=== PATIENT | female | born 1985 | race African-American/Black ===

== ENCOUNTER 2019-07-26 08:48 | Emergency (ER) | payer MEDICAID ==
[~2019-07-26] VITALS: Ht 144.8 cm; Wt 53.1 kg
[2019-07-26] MEDS ORDERED: BIKTARVY 50-201 EACH PO (08:56)
[2019-07-26] MEDS ORDERED: Metoclopramide 10mg/2ml Inj IVP ONE (09:00)
[2019-07-26] MEDS ORDERED: DiphenhydrAMINE 50mg/ml Inj IVP ONE (09:00)
[2019-07-26 09:02] VITALS: BP 148/89
--- NOTE | 2019-07-26 09:21 | NUR ---
ED Nurse Note: pt came in via ra 68 from home c/o n/v/d since last night pt HIVm + . LEOBARDO brown done blood and urine sent to lab pt on monitor IVF up infusing will monitor.
--- NOTE | 2019-07-26 09:35 | Emergency Room Report ---
History of Present Illness General Chief Complaint: Vomiting Source: Patient, EMS Present Illness HPI Patient presents with complaints of epigastric discomfort and vomiting and diarrhea reports that she has had similar problems in the past Patient has history of HIV and Was on previous medication which she had a reaction to with a rash She stopped that medication and again recently started the medicine yesterday and feels that again is having another reaction Denies any fevers or chills denies any headache denies any posterior neck pain Denies any specific lower abdominal pain denies any vaginal discharge Allergies: Coded Allergies: IODINE (Verified Allergy, Unknown, 07/26/19) LATEX (Verified Allergy, Unknown, 07/26/19) Patient History Past Medical History: see triage record Last Menstrual Period: 06/2019 Reviewed Nursing Documentation: PMH: Agreed; PSxH: Agreed Review of Systems All Other Systems: negative except mentioned in HPI Physical Exam Vital Signs Date Time Temp Pulse Resp B/P (MAP) Pulse Ox O2 Delivery O2 Flow Rate FiO2 07/26/19 08:52 97.9 110 16 148/89 (108) 98 Room Air Sp02 EP Interpretation: reviewed, normal General Appearance: mild distress - Appears nauseated and uncomfortable Head: normocephalic, atraumatic Eyes: bilateral eye PERRL, bilateral eye EOMI ENT: hearing grossly normal, EOM grossly intact, normal pharynx Neck: supple Respiratory: lungs clear, no respiratory distress, no retraction Cardiovascular #1: regular rate, rhythm Gastrointestinal: non tender, soft, no mass Musculoskeletal: normal inspection Neurologic: alert, oriented x3 Psychiatric: normal inspection Skin: no rash Lymphatic: no adenopathy Medical Decision Making Diagnostic Impression: Primary Impression: Vomiting Additional Impressions: Leukocytosis Drug reaction ER Course With the patient's history and examination, multiple differentials considered, including but not limited to , ectopic , ovarian torsion, gastritis, cholecystitis, pancreatitis, appendicitis Consideration for reaction to medications also made Patient did also receive Benadryl Initial white blood cell count is significantly elevated Given this finding patient had further hydration and CT imaging initiated On repeat evaluation feels significantly improved CT imaging does not reveal any acute process repeat CBC has decreased Patient remains awake and appropriate Abdominal pain has subsided Given the prolonged observation repeat evaluation patient felt comfortable with close outpatient follow-up and return with any worsening symptoms Labs Test 07/26/19 08:58 07/26/19 09:14 07/26/19 13:30 Urine Color Pale yellow Urine Appearance Clear Urine pH 5 (4.5-8.0) Urine Specific [place] 1.025 (1.005-1.035) Urine Protein 1+ (NEGATIVE) Urine Glucose (UA) Negative (NEGATIVE) Urine Ketones 1+ (NEGATIVE) Urine Blood Negative (NEGATIVE) Urine Nitrite Negative (NEGATIVE) Urine Bilirubin Negative (NEGATIVE) Urine Urobilinogen Normal MG/DL (0.0-1.0) Urine Leukocyte Esterase Negative (NEGATIVE) Urine RBC 0 /HPF (0 - 2) Urine WBC 0-2 /HPF (0 - 2) Urine Squamous Epithelial Cells Few /LPF (NONE/OCC) Urine Bacteria Moderate /HPF (NONE) Urine HCG, Qualitative Negative (NEGATIVE) Urine Opiates Screen Negative (NEGATIVE) Urine Barbiturates Screen Negative (NEGATIVE) Phencyclidine (PCP) Screen Negative (NEGATIVE) Urine Amphetamines Screen Negative (NEGATIVE) Urine Benzodiazepines Screen Positive (NEGATIVE) Urine Cocaine Screen Negative (NEGATIVE) Urine Marijuana (THC) Screen Positive (NEGATIVE) White Blood Count 21.5 K/UL (4.8-10.8) 18.5 K/UL (4.8-10.8) Red Blood Count 4.31 M/UL (4.20-5.40) 3.74 M/UL (4.20-5.40) Hemoglobin 15.2 G/DL (12.0-16.0) 13.0 G/DL (12.0-16.0) Hematocrit 44.3 % (37.0-47.0) 38.5 % (37.0-47.0) Mean Corpuscular Volume 103 FL (80-99) 103 FL (80-99) Mean Corpuscular Hemoglobin 35.2 PG (27.0-31.0) 34.8 PG (27.0-31.0) Mean Corpuscular Hemoglobin Concent 34.2 G/DL (32.0-36.0) 33.8 G/DL (32.0-36.0) Red Cell Distribution Width 11.8 % (11.6-14.8) 11.7 % (11.6-14.8) Platelet Count 435 K/UL (150-450) 346 K/UL (150-450) Mean Platelet Volume 6.3 FL (6.5-10.1) 6.6 FL (6.5-10.1) Neutrophils (%) (Auto) % (45.0-75.0) % (45.0-75.0) Lymphocytes (%) (Auto) % (20.0-45.0) % (20.0-45.0) Monocytes (%) (Auto) % (1.0-10.0) % (1.0-10.0) Eosinophils (%) (Auto) % (0.0-3.0) % (0.0-3.0) Basophils (%) (Auto) % (0.0-2.0) % (0.0-2.0) Differential Total Cells Counted 100 100 Neutrophils % (Manual) 91 % (45-75) 91 % (45-75) Lymphocytes % (Manual) 5 % (20-45) 6 % (20-45) Monocytes % (Manual) 4 % (1-10) 3 % (1-10) Eosinophils % (Manual) 0 % (0-3) 0 % (0-3) Basophils % (Manual) 0 % (0-2) 0 % (0-2) Band Neutrophils 0 % (0-8) 0 % (0-8) Platelet Estimate Adequate Adequate Platelet Morphology Normal Normal Macrocytosis 1+ 1+ Sodium Level 139 MMOL/L (136-145) Potassium Level 3.8 MMOL/L (3.5-5.1) Chloride Level 101 MMOL/L (98-107) Carbon Dioxide Level 21 MMOL/L (21-32) Anion Gap 17 mmol/L (5-15) Blood Urea Nitrogen 19 mg/dL (7-18) Creatinine 1.1 MG/DL (0.55-1.30) Estimat Glomerular Filtration Rate > 60 mL/min (>60) Glucose Level 94 MG/DL (74-106) Calcium Level 10.0 MG/DL (8.5-10.1) Total Bilirubin 0.5 MG/DL (0.2-1.0) Aspartate Amino Transf (AST/SGOT) 30 U/L (15-37) Alanine Aminotransferase (ALT/SGPT) 45 U/L (12-78) Alkaline Phosphatase 94 U/L (46-116) Total Protein 9.1 G/DL (6.4-8.2) Albumin 4.9 G/DL (3.4-5.0) Globulin 4.2 g/dL Albumin/Globulin Ratio 1.2 (1.0-2.7) Lipase 134 U/L (73-393) Rhythm Strip Diag. Results EP Interpretation: yes Rate: 88 Rhythm: NSR, no PVC's, no ectopy CT/MRI/US Diagnostic Results CT/MRI/US Diagnostic Results : Impression CT abdomen pelvisImpression: Limited assessment of the GI tract, due to lack of enteric contrast administration No definite acute abnormality. Fatty liver Last Vital Signs Date Time Temp Pulse Resp B/P (MAP) Pulse Ox O2 Delivery O2 Flow Rate FiO2 07/26/19 09:02 97.9 16 148/89 98 Room Air 07/26/19 08:52 110 Status: improved Disposition: HOME, SELF-CARE Condition: Improved Scripts Hydrocortisone 1% Oint (Hydrocortisone 1% Oint*) Y Oint 28 GM TP DAILY for 7 Days, #6 GM Prov: German Olmedo DO 07/26/19 Hydrocortisone 1% Oint (Hydrocortisone 1% Oint*) Y Oint 28 GM TP DAILY for 7 Days, GM Prov: German Olmedo DO 07/26/19 Prednisone* (PREDNISONE*) 20 Mg Tablet 20 MG ORAL BID, #6 TAB Prov: German Olmedo DO 07/26/19 Diphenhydramine Hcl* (BENADRYL*) 25 Mg Capsule 25 MG ORAL Q6H PRN for Itching, #20 CAP Prov: German Olmedo DO 07/26/19 Ondansetron* (ZOFRAN*) 4 Mg Tablet 4 MG ORAL Q6H PRN for Nausea & Vomiting, #12 TAB Prov: German Olmedo DO 07/26/19 Additional Instructions: Patient is provided with the discharge instructions notified to follow up with primary doctor in the next 2-3 days otherwise return to the er with any worsening symptoms. Please note that this report is being documented using [employer] technology. This can lead to erroneous entry secondary to incorrect interpretation by the dictating instrument. German Olmedo DO Jul 26, 2019 09:35
[2019-07-26 09:43] VITALS: BP 145/120
[2019-07-26 09:46] LABS: APPEARANCE,URINE CLEAR; BILIRUBIN, URINE NEGATIVE (NEGATIVE); COLOR,URINE PALE YELLOW; GLUCOSE, URINE (UA) NEGATIVE (NEGATIVE); KETONES,URINE 1+ (NEGATIVE); LEUKOCYTE ESTERASE ,URINE NEGATIVE (NEGATIVE); NITRITE,URINE NEGATIVE (NEGATIVE); PH,URINE 5 (4.5-8.0); PROTEIN,URINE 1+ (NEGATIVE); UROBILINOGEN,URINE NORMAL MG/DL (0.0-1.0)
[2019-07-26 09:54] LABS: HEMATOCRIT 44.3 % (37.0-47.0); HEMOGLOBIN 15.2 G/DL (12.0-16.0); MEAN CORPUSCULAR VOLUME 103 FL (80-99); PLATELET COUNT 435 K/UL (150-450); RED BLOOD COUNT 4.31 M/UL (4.20-5.40); RED CELL DISTRIBUTION WIDTH 11.8 % (11.6-14.8); WHITE BLOOD COUNT 21.5 K/UL (4.8-10.8)
[2019-07-26 10:16] LABS: ANION GAP 17 mmol/L (5-15); BLOOD UREA NITROGEN 19 mg/dL (7-18); CARBON DIOXIDE 21 MMOL/L (21-32); CHLORIDE 101 MMOL/L (98-107); CREATININE 1.1 MG/DL (0.55-1.30); POTASSIUM 3.8 MMOL/L (3.5-5.1); SODIUM 139 MMOL/L (136-145)
[2019-07-26 10:22] LABS: ALANINE AMINOTRANSFERASE 45 U/L (12-78); ALBUMIN 4.9 G/DL (3.4-5.0); ALBUMIN/GLOBULIN RATIO 1.2 (1.0-2.7); ALKALINE PHOSPHATASE 94 U/L (46-116); ASPARTATE AMINO TRANSFERASE 30 U/L (15-37); BILIRUBIN,TOTAL 0.5 MG/DL (0.2-1.0)
[2019-07-26] MEDS ORDERED: Morphine Sulfate 4mg/ml Inj (IV USE ONLY) IVP ONE (11:00)
--- NOTE | 2019-07-26 12:14 | Diagnostic Imaging Report ---
Indication: Abdominal pain, nausea, vomiting Technique: Spiral acquisitions obtained through the abdomen and pelvis. No oral contrast utilized, per emergency room physician request No IV contrast utilized, per referring physician request.. Multiplanar reconstructions were generated. Total dose length product 601 mGycm. CTDIvol(s) 11 mGy. Dose reduction achieved using automated exposure control Comparison: None Findings: Lack of enteric contrast limits assessment of the GI tract. The appendix is normal. No evidence of colonic diverticulosis or diverticulitis. No small bowel distention. No free or loculated intraperitoneal gas or fluid is evident. The distal esophagus, stomach, duodenum are unremarkable. Lack of IV contrast limits assessment of the solid organs. The liver is mildly hypoattenuating, consistent with fatty change. No focal abnormality. The gallbladder, bile ducts, pancreas, spleen, adrenals, kidneys are unremarkable. No renal or ureteral calculi, hydronephrosis, or hydroureter demonstrated. No pelvic mass or adenopathy. Uterus and ovaries are unremarkable. The included lung bases are clear. The bones are unremarkable. Impression: Limited assessment of the GI tract, due to lack of enteric contrast administration No definite acute abnormality. Fatty liver The CT scanner at [facility] is accredited by the [employer] and the scans are performed using protocols designed to limit radiation exposure to as low as reasonably achievable to attain images of sufficient resolution adequate for diagnostic evaluation.
--- NOTE | 2019-07-26 13:31 | NUR ---
ED Nurse Note: cbc redrawn and sent per ermd verbal order.
[2019-07-26 13:32] VITALS: BP 110/97
[2019-07-26 13:44] LABS: HEMATOCRIT 38.5 % (37.0-47.0); MEAN CORPUSCULAR VOLUME 103 FL (80-99); PLATELET COUNT 346 K/UL (150-450); RED BLOOD COUNT 3.74 M/UL (4.20-5.40); RED CELL DISTRIBUTION WIDTH 11.7 % (11.6-14.8); WHITE BLOOD COUNT 18.5 K/UL (4.8-10.8)
[2019-07-26] MEDS ORDERED: ZOFRAN4 M3 ORAL (13:56)
[2019-07-26] MEDS ORDERED: PREDNISONE20 MG ORAL (13:56)
[2019-07-26] MEDS ORDERED: BENADRYL25 MG ORAL (13:56)
[2019-07-26] MEDS ORDERED: HYDROCORTISONE28 G2 TP ×2 (14:05→14:06)
[2019-07-26 14:28] VITALS: BP 135/95
--- NOTE | 2019-07-26 14:30 | NUR ---
ED Nurse Note: Pt cleared by health care Provider for discharge. DC instructions/prescription was given and explained to pt and verbalized understanding of teachings. All medical deviecs such as ID band removed. Pt is AAO x4, ambulatory and left with all personal belongings.
[2019-07-29] MEDS ORDERED: CEPHALEXIN500 M1 ORAL (10:52)
== END 2019-07-26 14:30 | disposition home or self-care (01) ==
LOC: EDBD 08:48 → EMR 09:21
DX: R11.10 Vomiting, unspecified (principal); D72.829 Elevated white blood cell count, unspecified; B20 Human immunodeficiency virus [HIV] disease; T50.905A Adverse effect of unspecified drugs, medicaments and biological substances, initial encounter; Y92.9 Unspecified place or not applicable; Z91.041 Radiographic dye allergy status; Z91.040 Latex allergy status; K76.0 Fatty (change of) liver, not elsewhere classified
CPT/HCPCS: 36415; 74176; 80053; 80307; 81003; 81025; 83690; 85007; 85025; 87086; 87181; 96361; 96374; 96375; J1200; J2270; J2405; J2765; J7030; Z7502; 99284

== ENCOUNTER 2020-06-05 17:59 | Emergency (ER) | payer MEDICAID ==
[~2020-06-05] VITALS: Ht 147.3 cm; Wt 45.4 kg
[~2020-06-05 17:59] MED LIST: BENADRYL25 MG ORAL; BIKTARVY 50-201 EACH PO; CEPHALEXIN500 M1 ORAL; HYDROCORTISONE28 G2 TP; IBUPROFEN600 MG ORAL; LIDODERM700 M1 TOPIC; NITROFURANTOIN100 M2 ORAL; PREDNISONE20 MG ORAL; ROBAXIN-750750 MG PO; TYLENOL EXTRA500 MG ORAL; ZOFRAN4 M3 ORAL
[2020-06-05 18:14] VITALS: BP 126/80
[2020-06-05] MEDS ORDERED: Lidocaine 2% Visc 15ml soln ORAL ONE (18:45)
[2020-06-05] MEDS ORDERED: Tylenol #3 tab (300mg/30mg) ORAL ONE (18:45)
--- NOTE | 2020-06-05 18:48 | Emergency Room Report ---
History of Present Illness General Chief Complaint: Flu Like Symptoms Source: Patient Present Illness HPI 34 YO female presents to the ED c/o 06/[address], fatigue, body aches and cough x 3 days. Pt. reports her throat is the most bothersome of her symptoms and it was the first symptom to occur. Pt. reports every time she swallows or coughs she feels like sharp glass is cutting down her throat. She r eports some mucus that feels "stuck" in her throat and that she is constantly clearing her throat or waking up feeling as though she is choking. Pt. reports sometimes with excessive talking her throat becomes irritated and causes her to have bouts of coughing back to back. Pt. does not think she has had any fevers. She denies chills. 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 Pt. reports hx of HIV and states she is checked regularly and has been undetectable. She is not sure what her last CD4 count was but reports that her Dr. has never had concern about it. She denies changes in her voice. She Reports upper back pain after episodes of back to back coughing. 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 Patient History Past Medical History: see triage record, HIV Past Surgical History: none Pertinent Family History: none Last Menstrual Period: last month Now: No Reviewed Nursing Documentation: PMH: Agreed; PSxH: Agreed Nursing Documentation-PMH Past Medical History: No History, Except For Review of Systems All Other Systems: negative except mentioned in HPI Physical Exam Vital Signs Date Time Temp Pulse Resp B/P (MAP) Pulse Ox O2 Delivery O2 Flow Rate FiO2 06/05/20 18:03 98.2 104 20 130/86 (101) 95 Room Air Sp02 EP Interpretation: reviewed, normal General Appearance: no apparent distress, alert, GCS 15, non-toxic Head: normocephalic, atraumatic Eyes: bilateral eye normal inspection, bilateral eye PERRL ENT: hearing grossly normal, normal voice, TMs + canals normal, uvula midline, moist mucus membranes, tonsillar swelling, pharyngeal erythema - moderate erythema Neck: full range of motion, no meningismus, other - no Stridor, no hoarsness or muffled voice Respiratory: chest non-tender, lungs clear, normal breath sounds, no respiratory distress, no accessory muscle use, no wheezing, speaking full sentences Cardiovascular #1: regular rate, rhythm Gastrointestinal: normal bowel sounds, non tender, soft Musculoskeletal: back normal, normal range of motion, gait/station normal, non- tender Neurologic: alert, motor strength/tone normal, oriented x3, sensory intact, responsive, speech normal Psychiatric: judgement/insight normal Skin: no rash, normal color Lymphatic: no adenopathy Medical Decision Making PA Attestation Dr. Street is my supervising Physician whom patient management has been discussed with. Diagnostic Impression: Primary Impression: Pharyngitis, acute Qualified Codes: J02.0 - Streptococcal pharyngitis Additional Impression: Cough ER Course 34 YO female presents to the ED c/o 06/[address], fatigue, body aches and cough x 3 days. Pt. reports her throat is the most bothersome of her symptoms and it was the first symptom to occur. Pt. reports every time she swallows or coughs she feels like sharp glass is cutting down her throat. She reports some mucus that feels "stuck" in her throat and that she is constantly clearing her throat or waking up feeling as though she is choking. Pt. reports sometimes with excessive talking her throat becomes irritated and causes her to have bouts of coughing back to back. Pt. does not think she has had any fevers. She denies chills. 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 Pt. reports hx of HIV and states she is checked regularly and has been undetectable. She is not sure what her last CD4 count was but reports that her Dr. has never had concern about it. She denies changes in her voice. She Reports upper back pain after episodes of back to back coughing. Ddx considered but are not limited to: pharyngitis, strep, DOWEL [employer] WORKER, ludwigs angina, URI Vital signs: are WNL, pt. is afebrile H&PE are most consistent with: pharyngitis presumed strep. ORDERS: None required at this time as the diagnosis is clinical ED INTERVENTIONS: -Lidocaine Viscous PO - T3 PO This patient was evaluated in the context of the global COVID-19 pandemic, which necessitated consideration that the patient might be at risk for infection with the SARS-COV-2 virus that causes COVID-19. Institutional protocols and algorithms that pertaining to the evaluation of patients at risk for COVID-19 are in a state of rapid change based on information released by multiple regulatory bodies including the CDC and federal and state organizations. These policies and algorithms were followed during the patient's care in the emergency department DISCHARGE: At this time pt. is stable for d/c to home. Will provide printed patient care instructions, and any necessary prescriptions. Care plan and follow up instructions have been discussed with the patient prior to discharge. Last Vital Signs Date Time Temp Pulse Resp B/P (MAP) Pulse Ox O2 Delivery O2 Flow Rate FiO2 06/05/20 18:14 98.2 96 19 126/80 96 Room Air Status: improved Disposition: HOME, SELF-CARE Condition: Stable Scripts Codeine/Promethazine Hcl* (PROMETHAZINE-CODEINE SYRUP*) 118 Ml Syrup 5 ML ORAL Q6H PRN for For Cough, #120 ML 0 Refills Prov: Fatmata Jimenez 06/05/20 Lidocaine HCl 2% Viscous (Lidocaine HCl 2% Viscous) 100 Ml Solution 10 ML ORAL QID, #100 ML Prov: Fatmata Jimenez 06/05/20 Ibuprofen* (MOTRIN*) 600 Mg Tablet 600 MG ORAL THREE TIMES A DAY, #20 TAB Prov: Fatmata Jimenez 06/05/20 Amoxicillin/Potassium Clav 875-125* (AUGMENTIN 875-125 TABLET*) 1 Each Tablet 1 TAB ORAL TWICE A DAY for 10 Days, #20 TAB Prov: Fatmata Jimenez 06/05/20 Patient Instructions: Pharyngitis, [id number], Upper Respiratory Infection, Adult Additional Instructions: Take medications as directed. Follow up with a Primary Care Provider in 3-5 days, even if your symptoms have resolved. --Please review list of primary care clinics, if you do not already have a primary care provider Return sooner to ED if new symptoms occur, or current symptoms become worse. Do not drink alcohol, drive, or operate heavy machinery while taking Cough Syrup as this may cause drowsiness. - Please note that this Emergency Department Report was dictated using [employer] technology software, occasionally this can lead to erroneous entry secondary to interpretation by the dictation equipment. Fatmata Jimenez Jun 05, 2020 18:48
[2020-06-05] MEDS ORDERED: LIDOCAINE VISC100 ML ORAL (18:52)
[2020-06-05] MEDS ORDERED: AUGMENTIN 875-1 EAC1 ORAL (18:52)
[2020-06-05] MEDS ORDERED: PROMETHAZINE-C118 M1 ORAL (18:52)
[2020-06-05] MEDS ORDERED: IBUPROFEN600 M1 ORAL (18:52)
[2020-06-05 19:00] VITALS: BP 122/76
== END 2020-06-05 19:00 | disposition home or self-care (01) ==
LOC: EMR 18:55
DX: J02.0 Streptococcal pharyngitis (principal); R05 Cough; B20 Human immunodeficiency virus [HIV] disease; Z91.041 Radiographic dye allergy status; Z91.040 Latex allergy status
CPT/HCPCS: 99282

== ENCOUNTER 2020-08-01 14:17 | Emergency (ER) | payer MEDICAID ==
[~2020-08-01] VITALS: Ht 144.8 cm; Wt 45.4 kg
[~2020-08-01 14:17] MED LIST changes: +AUGMENTIN 875-1 EAC1 ORAL; +IBUPROFEN600 M1 ORAL; +LIDOCAINE VISC100 ML ORAL; +PROMETHAZINE-C118 M1 ORAL
[2020-08-01 14:43] VITALS: BP 110/66
[2020-08-01] MEDS ORDERED: Excedrin Migraine tab ORAL ONE (15:00)
[2020-08-01] MEDS ORDERED: Lidocaine 2% Visc 15ml soln ORAL ONE (15:00)
--- NOTE | 2020-08-01 15:32 | Emergency Room Report ---
History of Present Illness General Chief Complaint: Flu Like Symptoms Source: Patient Present Illness HPI 35-year-old female presents to the emergency department complaining of 10 out of 10 severity sore throat in addition to dry cough, dry nose and right-sided ear pain x1 week. Patient reports she was at a dentist office yesterday and was supposed to have a root canal however she left because she was scared about the procedure and she states she did not receive any antibiotics or pain medications. Patient reports history of thyroid nodules which were incidental finding at one of her previous ED visits here. Patient reports she did follow- up with primary care provider who performed ultrasound. Patient states that she has an appointment in September with endocrinology. Patient denies significant changes in weight. She reports she does have history of HIV and states that her viral load is undetectable but is not sure what her CD4 count is but states it is never been mentioned as a problem. She denies fevers or chills. Patient reports having body aches as well. She denies recent ill contacts. She states she did miss her most recent appointment for her HIV doctor. Patient reports that she is a daily marijuana smoker and does utilize moderate amount of caffeine. She states that in the past she was given medications (pepcid) for acid reflux and states that she can only take certain ones due to her HIV medication. Patient does report some nausea she denies vomiting. She does report burning sensation in the chest area that is worse at nighttime. She states she does have some pain with swallowing. She denies palpitations, dizziness, neck pain/stiffness or shortness of breath. Patient denies productive cough. No other aggravating or relieving factors at this time. Allergies: Coded Allergies: IODINE (Verified Allergy, Unknown, 07/26/19) LATEX (Verified Allergy, Unknown, 07/26/19) COVID-19 Screening Contact w/high risk pt: No Experienced COVID-19 symptoms?: Yes COVID-19 Testing performed BUFFET MANAGER: No Patient History Past Medical History: see triage record Past Surgical History: none Pertinent Family History: none Last Menstrual Period: last month Now: No Reviewed Nursing Documentation: PMH: Agreed; PSxH: Agreed Nursing Documentation-PMH Past Medical History: No History, Except For History Of Psychiatric Problem: Yes - anxiety Review of Systems All Other Systems: negative except mentioned in HPI Physical Exam Vital Signs Date Time Temp Pulse Resp B/P (MAP) Pulse Ox O2 Delivery O2 Flow Rate FiO2 08/01/20 14:22 99.0 114 20 113/60 (77) 98 Room Air 08/01/20 14:43 98 Sp02 EP Interpretation: reviewed, normal General Appearance: no apparent distress, alert, GCS 15, non-toxic Head: normocephalic, atraumatic Eyes: bilateral eye normal inspection, bilateral eye PERRL ENT: hearing grossly normal, normal voice, TMs + canals normal, uvula midline, moist mucus membranes, pharyngeal erythema, other - no exudates or ulcers, uvula is midline Neck: full range of motion, no meningismus, no bony tend Respiratory: chest non-tender, lungs clear, normal breath sounds, no respiratory distress, no accessory muscle use, no wheezing, speaking full [place] Cardiovascular #1: regular rate, rhythm, normal capillary refill Gastrointestinal: non tender, soft, non-distended, no guarding Musculoskeletal: back normal, normal range of motion, gait/station normal, non- tender Neurologic: alert, motor strength/tone normal, oriented x3, sensory intact, re sponsive, speech normal Psychiatric: judgement/insight normal Skin: no rash, normal color Lymphatic: no adenopathy Medical Decision Making PA Attestation Dr. Wright Is my supervising Physician whom patient management has been discussed with. Diagnostic Impression: Primary Impression: Esophagitis Additional Impressions: Sore throat History of HIV infection History of thyroid nodule ER Course 35-year-old female presents to the emergency department complaining of 10 out of 10 severity sore throat in addition to dry cough, dry nose and right-sided ear pain x1 week. Patient reports she was at a dentist office yesterday and was supposed to have a root canal however she left because she was scared about the procedure and she states she did not receive any antibiotics or pain medications. Patient reports history of thyroid nodules which were incidental finding at one of her previous ED visits here. Patient reports she did follow- up with primary care provider who performed ultrasound. Patient states that she has an appointment in September with endocrinology. Patient denies significant changes in weight. She reports she does have history of HIV and states that her viral load is undetectable but is not sure what her CD4 count is but states it is never been mentioned as a problem. She denies fevers or chills. Patient reports having body aches as well. She denies recent ill contacts. She states she did miss her most recent appointment for her HIV doctor. Patient reports that she is a daily marijuana smoker and does utilize moderate amount of caffeine. She states that in the past she was given medications (pepcid) for acid reflux and states that she can only take certain ones due to her HIV medication. Patient does report some nausea she denies vomiting. She does report burning sensation in the chest area that is worse at nighttime. She states she does have some pain with swallowing. She denies palpitations, dizziness, neck pain/stiffness or shortness of breath. Patient denies productive cough. No other aggravating or relieving factors at this time. Ddx considered but are not limited to: pharyngitis, strep, BUFFET MANAGER, ludwigs angina, URI Vital signs: Patient is tachycardic on arrival and the remaining vital signs are WNL, pt. is afebrile -please note that at each of patient's previous ED visits patient has been consistently tachycardic. Heart rate was d/w patient and she reports she has anxiety and often will have somewhat elevated HR. H&PE are most consistent with: esophagitis/ pharyngitis presumed strep due to immune compromise. d/w pt. that suspicious for GERD irritation as possible cause. She is non-toxic in appearance, No stridor, no evidence of BUFFET MANAGER or sunil's angina. Pt. is NAD, normal respirations without increased effort. Normal voice and able to tolerate own secretions. Concern for pt. non-compliance due to pt. endorsing knowingly missing her appt. with HIV specialist, and [place] from her dentist appointment yesterday. ORDERS: None required at this time as the diagnosis is clinical ED INTERVENTIONS: none required at this time. - Excedrin Migraine ( pt. requested pain medication, she specifically asked for T#3, I told patient that her current ED presentation does not warrant opiate administration. She was offered Tylenol, Motrin or Excedrin, she chose Excedrin. -I do not identify an emergent condition at this time. With current presentation, pt. is stable for close outpatient follow up and conservative treatment. D/w pt. to return promptly to ED with worsening or new symptoms.- Pt. verbalizes' understanding and agreement with proposed treatment plan. D/w pt. that She should See an ENT specialist to evaluate her for esophagitis in the setting of hx of GERD and HIV. DISCHARGE: At this time pt. is stable for d/c to home. Will provide printed patient care instructions, and any necessary prescriptions. Care plan and follow up instructions have been discussed with the patient prior to discharge. Upon DC pt. had nurse ask me if I would rx's Promethazine with codeine, This request was declined. Pt. instead accepted plain promethazine cough syrup. Last Vital Signs Date Time Temp Pulse Resp B/P (MAP) Pulse Ox O2 Delivery O2 Flow Rate FiO2 08/01/20 14:43 112 21 Room Air 98 08/01/20 14:43 99.0 110/66 98 Status: improved Disposition: HOME, SELF-CARE Condition: Stable Scripts Promethazine Hcl (PROMETHAZINE HCL*) 6.25 Mg/5 Ml Syrup 5 ML ORAL Q6H, #120 ML 0 Refills Prov: Fatmata Jimenez 08/01/20 Oxymetazoline Hcl (NASAL SPRAY EXTRA MOISTURIZING) 30 Ml [place] 1 SPRAYS NS BID, #30 SPRAY Prov: Fatmata Jimenez 08/01/20 Famotidine* (Pepcid 20mg tablet*) 20 Mg Tablet 20 MG ORAL DAILY for Gerd, #14 TAB 0 Refills Prov: Fatmata Jimenez 08/01/20 Clotrimazole (Mycelex Sigrid) 10 Mg Sigrid 10 MG ORAL QID for 5 Days, #20 SIGRID Prov: Fatmata Jimenez 08/01/20 Amoxicillin/Potassium Clav 875-125* (AUGMENTIN 875-125 TABLET*) 1 Each Tablet 1 TAB ORAL TWICE A DAY for 10 Days, #20 TAB Prov: Fatmata Jimenez 08/01/20 Lidocaine HCl 2% Viscous (Lidocaine HCl 2% Viscous) 100 Ml Solution 5 ML ORAL QID, #120 ML Prov: Fatmata Jimenez 08/01/20 Referrals: [facility],REFERRING (PCP) Patient Instructions: Esophagitis, Pharyngitis, [id number] Additional Instructions: Take medications as directed. Follow up with a Primary Care Provider in 3-5 days, even if your symptoms have resolved. Also follow-up with ENT or supervisor real estate office for evaluation of esophagitis which would need to be diagnosed with a camera procedure. --Please review list of primary care clinics, if you do not already have a primary care provider Return sooner to ED if new symptoms occur, or current symptoms become worse. - Please note that this Emergency Department Report was dictated using [employer] lawyer technology software, occasionally this can lead to erroneous entry secondary to interpretation by the dictation equipment. Fatmata Jimenez Aug 01, 2020 15:32
[2020-08-01] MEDS ORDERED: LIDOCAINE VISC100 ML ORAL (15:36)
[2020-08-01] MEDS ORDERED: AUGMENTIN 875-1 EAC1 ORAL (15:36)
[2020-08-01] MEDS ORDERED: MYCELEX TROCHE10 MG ORAL (15:36)
[2020-08-01] MEDS ORDERED: FAMOTIDINE20 MG ORAL (15:36)
[2020-08-01] MEDS ORDERED: NASAL SPRAY EXT30 ML NS (15:45)
[2020-08-01] MEDS ORDERED: PROMETHAZI6.25 MG/1 ORAL (15:50)
[2020-08-01 15:52] VITALS: BP 115/69
== END 2020-08-01 15:54 | disposition home or self-care (01) ==
LOC: EMR 14:52
DX: K20.90 Esophagitis, unspecified without bleeding (principal); J02.9 Acute pharyngitis, unspecified; E04.1 Nontoxic single thyroid nodule; B20 Human immunodeficiency virus [HIV] disease; F12.90 Cannabis use, unspecified, uncomplicated; Z91.040 Latex allergy status; Z88.8 Allergy status to other drugs, medicaments and biological substances
CPT/HCPCS: 99283

== ENCOUNTER 2020-11-15 17:54 | Emergency (ER) | payer MEDICAID ==
[~2020-11-15] VITALS: Ht 144.8 cm; Wt 43.5 kg
[~2020-11-15 17:54] MED LIST changes: +FAMOTIDINE20 MG ORAL; +MYCELEX TROCHE10 MG ORAL; +NASAL SPRAY EXT30 ML NS; +PROMETHAZI6.25 MG/1 ORAL
--- NOTE | 2020-11-15 18:11 | NUR ---
Pt reports vaginal bleeding and clots, abd cramping, N/V, chills, dizziness onset 11/06/20. Pt does not know if she is but states she feels like she has a fever. Pt is afebrile.
--- NOTE | 2020-11-15 18:52 | NUR ---
labs and urine sent to lab at this time
[2020-11-15 18:56] LABS: BASOPHILS % (AUTO) 1.4 % (0.0-2.0); EOSINOPHILS % (AUTO) 0.3 % (0.0-3.0); LYMPHOCYTES % (AUTO) 28.5 % (20.0-45.0); MEAN CORPUSCULAR VOLUME 105 FL (80-99); MONOCYTES % (AUTO) 8.4 % (1.0-10.0); NEUTROPHILS % (AUTO) 61.4 % (45.0-75.0); PLATELET COUNT 332 K/UL (150-450); RED BLOOD COUNT 4.09 M/UL (4.20-5.40); RED CELL DISTRIBUTION WIDTH 12.4 % (11.6-14.8); WHITE BLOOD COUNT 7.5 K/UL (4.8-10.8)
[2020-11-15 18:57] LABS: APPEARANCE,URINE VERY CLOUDY; BILIRUBIN, URINE 1+ (NEGATIVE); GLUCOSE, URINE (UA) NEGATIVE (NEGATIVE); KETONES,URINE 2+ (NEGATIVE); LEUKOCYTE ESTERASE ,URINE 1+ (NEGATIVE); NITRITE,URINE NEGATIVE (NEGATIVE); PH,URINE 5 (4.5-8.0); PROTEIN,URINE 4+ (NEGATIVE); UROBILINOGEN,URINE 1 MG/DL (0.0-1.0)
[2020-11-15 19:06] LABS: ANION GAP 9 mmol/L (5-15); BLOOD UREA NITROGEN 15 mg/dL (7-18); CALCIUM 9.7 MG/DL (8.5-10.1); CARBON DIOXIDE 30 MMOL/L (21-32); CHLORIDE 100 MMOL/L (98-107); POTASSIUM 3.4 MMOL/L (3.5-5.1); SODIUM 139 MMOL/L (136-145)
[2020-11-15 19:09] LABS: COLOR,URINE RED
[2020-11-15 19:10] LABS: ALANINE AMINOTRANSFERASE 28 U/L (12-78); ALBUMIN 4.9 G/DL (3.4-5.0); ALBUMIN/GLOBULIN RATIO 1.4 (1.0-2.7); ALKALINE PHOSPHATASE 106 U/L (46-116); ASPARTATE AMINO TRANSFERASE 27 U/L (15-37); BILIRUBIN,TOTAL 0.4 MG/DL (0.2-1.0)
[2020-11-15] MEDS ORDERED: Ketorolac 30mg Inj IV ONE ×2 (20:00→23:15)
[2020-11-15] MEDS ORDERED: cefTRIAXone 1 GM in NS 55 ML IVPB ONE (20:15)
--- NOTE | 2020-11-15 20:29 | NUR ---
ED Vinicio SEPULVEDA at bedside checking on patient. Pt awaiting US. Pt reports no c/o nausea at this time, but is instructed to take sips of water. Pt is resting in bed with c/o gurgling in her lower abd region.
[2020-11-15] MEDS ORDERED: Lidocaine 2% Visc 15ml soln ORAL ONE (20:30)
[2020-11-15] MEDS ORDERED: Dicyclomine HCl 10mg/5ml oral soln ORAL ONE (20:30)
--- NOTE | 2020-11-15 21:14 | NUR ---
Pt reports continued lower abd pain. ED , Vinicio henderson.
--- NOTE | 2020-11-15 21:27 | NUR ---
Pt IVF continues to infuse. Pt given GI cocktail for abd pain. Will reassess at a later time.
[2020-11-15] MEDS ORDERED: CEPHALEXIN500 MG ORAL (21:29)
[2020-11-15] MEDS ORDERED: HYDROCODON-ACE1 EA15 ORAL (21:29)
[2020-11-15] MEDS ORDERED: IBUPROFEN600 M1 ORAL (21:29)
--- NOTE | 2020-11-15 22:52 | Diagnostic Imaging Report ---
EXAM: US Pelvis Transabdominal Limited and Transvaginal CLINICAL HISTORY: PAIN TECHNIQUE: Real-time limited transabdominal and transvaginal pelvic ultrasound with image documentation. Transvaginal imaging was used for better evaluation of the endometrium and adnexa. COMPARISON: No relevant prior studies available. FINDINGS: Uterus measures 7.4 x 1.1 x 3.7 cm. Normal endometrial thickness of 2.5 mm. No myometrial mass is identified. Right ovary measures 3.0 x 1.7 x 1.8 cm. Negative for ovarian torsion. Left ovary measures approximately 2.9 x 2.0 x 1.6 cm. Negative for left ovarian torsion. There is a complex cystic mass with posterior acoustical enhancement measuring up to 16 mm left ovary, most consistent with complex functional cyst. No free fluid.
[2020-11-15] MEDS ORDERED: BACTRIM DS TAB1 EAC1 ORAL (23:22)
--- NOTE | 2020-11-15 23:28 | NUR ---
Pt awake and alert, pt reports continued but decreased lower abd pain of 7/10 s/p toradol administration, otherwise, skin signs normal, no SS of respiratory distress, neuro intact, OK to discharge per ED Kyle SEPULVEDA.
--- NOTE | 2020-11-18 06:21 | Emergency Room Report ---
History of Present Illness General Chief Complaint: Vaginal Source: Patient Present Illness HPI Patient is a 35-year-old female presents for increased right-sided abdominal pain. Reports having prior history of polycystic ovary disease. States she is currently on her menses. Had not been having any fever. Similar symptoms in the past. Worsening pain over the past few days. Denies any recent trauma. Reports having moderate vaginal bleeding. Allergies: Coded Allergies: IODINE (Verified Allergy, Unknown, 07/26/19) LATEX (Verified Allergy, Unknown, 07/26/19) COVID-19 Screening Contact w/high risk pt: No Experienced COVID-19 symptoms?: Yes COVID-19 Testing performed AUTO WINDER: No Patient History Past Medical History: see triage record Last Menstrual Period: 11/14/20 Now: No - Unknown : 11 Para: 2 Reviewed Nursing Documentation: PMH: Agreed; PSxH: Agreed Nursing Documentation-PMH Hx Cardiac Problems: No Hx Hypertension: No Hx Pacemaker: No Hx Asthma: No Hx COPD: No Hx Diabetes: No Hx Cancer: No Hx Gastrointestinal Problems: No Hx Dialysis: No History Of Psychiatric Problem: No Hx Neurological Problems: No Hx Cerebrovascular Accident: No Hx Seizures: No Review of Systems All Other Systems: negative except mentioned in HPI Physical Exam Vital Signs Date Time Temp Pulse Resp B/P (MAP) Pulse Ox O2 Delivery O2 Flow Rate FiO2 11/15/20 18:01 98.2 123 20 98 Room Air General Appearance: well appearing, no apparent distress, alert, GCS 15, non- toxic Head: normocephalic, atraumatic ENT: hearing grossly normal, normal voice Neck: full range of motion, supple Respiratory: normal inspection, lungs clear, no respiratory distress, speaking full sentences Cardiovascular #1: normal inspection Gastrointestinal: normal inspection, normal bowel sounds, soft Musculoskeletal: normal inspection, normal range of motion, no calf tenderness Neurologic: alert, motor strength/tone normal, mailing clerk III-XII nml as tested, oriented x3, normal gait Psychiatric: normal inspection, mood/affect normal Skin: no rash Medical Decision Making Diagnostic Impression: Primary Impression: Polycystic ovary disease Additional Impression: Urinary tract infection ER Course Patient presents for pelvic pain. Differential diagnosis include was not limited to cystic ovary disease, dysmenorrhea, urinary tract infection, pelvic inflammatory disease among others. Because of complexity of patient's case laboratory tests and imaging studies were ordered. Patient laboratory testing showed some evidence of urinary infection. She does not appear to have any evidence of surgical abdomen. Patient was medicated medications for pain. She is also given antibiotics due to urinary infection. She was advised to follow-up with her INDUSTRIAL ANALYST for recheck. This medical record is generated with [employer] mineral technologist software. There may be some mineral technologist discrepancies related to use of this software Last Vital Signs Date Time Temp Pulse Resp B/P (MAP) Pulse Ox O2 Delivery O2 Flow Rate FiO2 11/15/20 18:34 98.2 20 98 Room Air 11/15/20 18:01 123 Status: improved Disposition: HOME, SELF-CARE Condition: Stable Scripts Trimethoprim/Sulfamethoxazole 160/800* (BACTRIM DS TABLET*) 1 Each Tablet 1 TAB ORAL Q12H for 7 Days, #14 TAB 0 Refills Prov: Netta Wright D.O. 11/15/20 Hydrocodone/Acetaminophen 5-325* (HYDROCODONE/ACETAMINOPHEN 5-325*) 1 Each Tablet 1 TAB ORAL Q6H PRN for For Pain, #10 TAB 0 Refills Prov: Parker Mooney MD 11/15/20 Cephalexin* (KEFLEX*) 500 Mg Capsule 500 MG ORAL EVERY 6 HOURS, #28 CAP Prov: Parker Mooney MD 11/15/20 Ibuprofen* (MOTRIN*) 600 Mg Tablet 600 MG ORAL Q8H PRN for FOR PAIN, #30 TAB 0 Refills Prov: Parker Mooney MD 11/15/20 Referrals: NON PHYSICIAN (PCP) Patient Instructions: Polycystic Ovarian Syndrome Additional Instructions: Follow up with your mobile phlebotomist for recheck. Return if worse. Parker Mooney MD Nov 18, 2020 06:21
== END 2020-11-15 23:30 | disposition home or self-care (01) ==
LOC: EMR 18:16
DX: E28.2 Polycystic ovarian syndrome (principal); N39.0 Urinary tract infection, site not specified; Z91.041 Radiographic dye allergy status; Z91.040 Latex allergy status
CPT/HCPCS: 36415; 76830; 76856; 80053; 81003; 81025; 83690; 85025; 85610; 85730; 87086; 96361; 96365; 96375; 96376; 99284; J2405; J7030